=== PATIENT | female | born 1975 | race Asian ===

== ENCOUNTER 2018-10-03 16:41 | Inpatient (IN) | payer OTHER ==
[2018-10-03] MEDS ORDERED: Nalbuphine 20 MG/ML 1 ML Syringe IVPUSH PRN (17:18)
[2018-10-03] MEDS ORDERED: Ampicillin 2 GM in Sodium Chloride 0.9% 100 ML IV ONE (17:18)
[2018-10-03] MEDS ORDERED: Sodium Chloride 0.9% 10 ML Syringe FLUSH PRN (17:18)
[2018-10-03] MEDS ORDERED: Acetaminophen 325 MG Tab PO PRN (17:18)
[2018-10-03] MEDS ORDERED: Oxytocin/Lactated Ringers 10 UNIT/1,000 ML BAG IV SCH ×2 (17:30)
--- NOTE | 2018-10-03 18:12 | PCM.LDHP ---
L&D History of Present Illness - General Date of Service: 10/03/18 Admit Problem/Dx: Patient Status Order with Admit Dx/Problem 10/03/18 17:19 Patient Status [ADT] Routine Admission Diagnosis/Problem Admission Diagnosis/Problem 39 weeks gestation of Source of Information: Patient History Limitations: Reports: No Limitations - History of Present Illness Introduction:: Guillermo Choe is a 43-year-old female at 38 weeks 6 days by LMP consistent with 20 week ultrasound who presents with spontaneous rupture membranes. She reports that she had small amount of leaking fluid at around 1 PM in and had a larger gush at around 4 PM. She reports that the fluid was a cloudy color but denies any green tent to the color of the fluid. She reports that she was maria victoria about every 20 minutes apart at time of rupture of her membranes. She states that the contractions were very mild in nature. She reports good movement. Timing/Duration: Reports: sudden onset (With leaking of fluid that started at around 1 PM and a large gush at around 4 PM), intermittent (Contractions every 20 minutes) Location, : Reports: Pelvic Quality: Reports: Pressure Severity: Mild Improves with: Reports: None Worsens with: Reports: None Associated Symptoms: Reports: vaginal fluid, moderate amount. Denies: vaginal bleeding, vaginal discharge Present Illness Comments:: Guillermo Choe is a 43-year-old at 38 weeks 6 days by LMP consistent with 20 week ultrasound. She has had routine care with Dr. Hannon since 12 weeks gestational age. This has been overall uncomplicated. Patient was given TDaP on 07/28/2018. labs Blood type: A+ Antibody screen: Negative First trimester hematocrit/hemoglobin: 35.6%/11.8 Platelets: 314 Genetic screening: Patient declined genetic screening after offering due to advanced maternal age Urine culture: Negative Rubella status: Immune Hepatitis B surface antigen: Negative RPR: Negative HIV: Negative Gonorrhea: Negative Chlamydia: Negative One hour glucose tolerance test: 120 Second trimester hematocrit/hemoglobin: 10.9 Platelets: 355 GBS status: Positive complicated by: * History of section for breech presentation and oligohydramnios and desires trial of labor after section * GBS positive without allergies * [place] ancestry BOOKKEEPER ASSISTANT history G1: 2000, , female infant, 6 pounds, at 40 weeks, no complications G2: 03/2014, SAB G3: 09/2014, concern for possible ectopic , patient given methotrexate for ectopic , D&C done for concerns for incomplete miscarriage G4: 10/05/2015, delivery for breech presentation with oligohydramnios at 37 weeks, male infant, no other complications G5: Current History of abnormal Pap smear but Pap smear during last in 03/2015 was negative for intraepithelial lesion or malignancy negative HPV testing Denies history of sexual transmitted infections - Related Data Allergies/Adverse Reactions: Allergies Allergy/AdvReac Type Severity Reaction Status Date / Time venom-honey bee Allergy Anaphylactic Verified 10/05/15 11:51 [bee venom (honey bee)] Shock Past Medical History - Past Health History Medical/Surgical History: Denies Medical/Surgical History BOOKKEEPER ASSISTANT History: Reports: Ectopic , Other (See Below) : 5 Para: 2 (2021) Other OB/BYN History: D/C done for miscarriage Hematologic History: Reports: Anemia - Past Surgical History Female Surgical History: Reports: Breast Implant, Section (2015) Social & Family History - Family History Oncologic: Reports: Bone (Mother) - Tobacco Use Smoking Status *Q: Never Smoker - Tobacco Core Measures Tobacco Use/Smoking Within Last 30 Days: No Smokeless Tobacco Use in Last 30 Days: No - Alcohol Use Alcohol Use History: No - Recreational Drug Use Recreational Drug Use: No Drug Use in Last 12 Months: No - Living Situation & Occupation Living situation: Reports: , with Significant Other (Engaged to new partner) Occupation: Employed H&P Review of Systems - Review of Systems: Review Of Systems: See Below General: Denies: Fever, Chills, Malaise, Weakness, Fatigue HEENT: Denies: Rhinitis, Post Nasal Drip, Sinus Congestion, Sore Throat, Visual Changes Pulmonary: Denies: Shortness of Breath, Wheezing, Pleuritic Chest Pain, Cough Cardiovascular: Denies: Chest Pain, Palpitations, Dyspnea on Exertion Gastrointestinal: Denies: Abdominal Pain, Constipation, Diarrhea, Nausea, Vomiting Genitourinary: Denies: Dysuria, Frequency, Burning, Pain, Urgency Musculoskeletal: Reports: Back Pain (And hip pain of ) Skin: Denies: Rash, Lesions Psychiatric: Denies: Depression, Anxiety Neurological: Denies: Headache L&D Exam - Exam Exam: See Below - OB Specific Contraction Duration (sec): 60 Contraction Frequency (min): Irregular 4-10 minutes Contraction Intensity: Mild to Moderate Movement: Active Heart Tones: Present Heart Tones per Min: 130 (+15 x 15 accelerations, no decelerations) Heart Rate (FHR) Variability: Moderate (6-25 bmp) Presentation: Vertex (Confirmed by bedside ultrasound) Estimated Weight: 6.5-7 pounds by Neal - Aguiar Score Aguiar Score Cervix Position: Anterior Aguiar Score Consistency: Medium Aguiar Score Effacement: 51-70% (60%) Aguiar Score Dilation: 1-2 cm (1 cm) Aguiar Score 's Station: -3 Aguiar Score Total: 6 - Exam General: Alert, Oriented HEENT: Conjunctiva Clear, EOMI Neck: Supple, Trachea Midline Lungs: Clear to Auscultation, Normal Respiratory Effort Cardiovascular: Regular Rate, Regular Rhythm GI/Abdominal Exam: Soft, No Distention, Other (Gravid). No: Guarding, Rigid, Rebound Genitourinary: Normal external exam Extremities: Normal Inspection, No Pedal Edema Skin: Warm, Dry, Intact Psychiatric: Alert, Normal Affect, Normal Mood - Problem List (1) 38 weeks gestation of SNOMED Code(s): 92569344 ICD Code: Z3A.38 - 38 WEEKS GESTATION OF Status: Acute Current Visit: Yes (2) History of section SNOMED Code(s): 457222576 ICD Code: Z98.891 - HISTORY OF UTERINE SCAR FROM PREVIOUS SURGERY Status: Acute Current Visit: Yes (3) History of delivery, currently SNOMED Code(s): 710326968, 362056309 ICD Code: O34.219 - MATERNAL CARE FOR UNSP TYPE SCAR FROM PREVIOUS DEL Status: Acute Current Visit: Yes (4) GBS (group B Streptococcus carrier), +RV culture, currently SNOMED Code(s): 8165481731735, 027363386, 1217956327550 ICD Code: O99.820 - STREPTOCOCCUS B CARRIER STATE COMPLICATING Status: Acute Current Visit: Yes (5) Advanced maternal age in multigravida SNOMED Code(s): 406127945 ICD Code: O09.529 - SUPERVISION OF ELDERLY MULTIGRAVIDA, UNSPECIFIED TRIMESTER Status: Acute Current Visit: Yes (6) ancestry requiring population-specific genetic screening SNOMED Code(s): 53364153, 514556850, 548193878 ICD Code: Z13.9 - ENCOUNTER FOR SCREENING, UNSPECIFIED Status: Acute Current Visit: Yes Problem List Initiated/Reviewed/Updated: Yes Orders Last 24hrs: Active Orders 24 hr Category Date Time Status Patient Status [ADT] Routine ADT 10/03/18 17:19 Active Activity as Tolerated [RC] PFP Care 10/03/18 17:18 Active Communication Order [RC] ASDIRECTED Care 10/03/18 17:18 Active Heart Tones [RC] ASDIRECTED Care 10/03/18 17:19 Active Non Stress Test [RC] PER UNIT ROUTINE Care 10/03/18 17:18 Active Notify Provider Vital Signs [RC] PRN Care 10/03/18 17:20 Active Notify Provider [RC] PFP Care 10/03/18 17:18 Active Notify Provider [RC] PRN Care 10/03/18 17:18 Active Peripheral IV Care [RC] . DIRECTED Care 10/03/18 17:19 Active Pump Management, Intrathecal [RC] ASDIRECTED Care 10/03/18 17:19 Active Vital Signs [RC] PER UNIT ROUTINE Care 10/03/18 17:18 Active Regular Diet [DIET] Diet 10/03/18 Dinner Active CBC WITH AUTO DIFF [HEME] Routine Lab 10/03/18 17:30 Received RAPID PLASMA REAGIN,RPR [CHEM] Routine Lab 10/03/18 17:30 Received TYPE AND SCREEN [BBK] Routine Lab 10/03/18 17:30 Received Acetaminophen [Tylenol] Med 10/03/18 17:18 Active 650 mg PO Q6H PRN Ampicillin 1 gm Med 10/03/18 21:00 Active Sodium Chloride 0.9% [Normal Saline] 100 ml IV Q4H Lactated Ringers [Ringers, Lactated] 1,000 ml Med 10/03/18 17:30 Active IV ASDIRECTED Nalbuphine [Nubain] Med 10/03/18 17:18 Active 10 mg IVPUSH Q2H PRN Oxytocin/Lactated Ringers [Pitocin in LR 10 Units/1,000 Med 10/03/18 17:30 Active ML] 10 unit in 1,000 ml IV .CONTINUOUS Oxytocin/Lactated Ringers [Pitocin in LR 10 Units/1,000 Med 10/03/18 17:30 Active ML] 10 unit in 1,000 ml IV TITRATE Sodium Chloride 0.9% [Saline Flush] Med 10/03/18 17:18 Active 10 ml FLUSH ASDIRECTED PRN Electronic Heart Tones Ext w TOCO [WOMSER] Oth 10/03/18 17:18 Ordered Routine Electronic Heart Tones Internal [WOMSER] Per Unit Ot 10/03/18 17:18 Ordered Routine Peripheral IV Insertion Adult [OM.PC] Routine Oth 10/03/18 17:18 Ordered Resuscitation Status Routine Resus Stat 10/03/18 17:18 Ordered Medication Orders Acetaminophen (Tylenol) 650 mg PO Q6H PRN PRN Reason: Pain (Mild 1-3) and fever Ampicillin Sodium 1 gm/ Sodium (Chloride) 100 mls @ 200 mls/hr IV Q4H KARLENE Lactated Ringer's (Ringers, Lactated) 1,000 mls @ 100 mls/hr IV ASDIRECTED KARLENE Oxytocin/Lactated Ringer's (Pitocin In Lr 10 Units/1,000 Ml) 10 unit in 1,000 mls @ 12 mls/hr IV TITRATE KARLENE; Protocol Oxytocin/Lactated Ringer's (Pitocin In Lr 10 Units/1,000 Ml) 10 unit in 1,000 mls @ 100 mls/hr IV .CONTINUOUS KARLENE; Protocol Nalbuphine HCl (Nubain) 10 mg IVPUSH Q2H PRN PRN Reason: pain Sodium Chloride (Saline Flush) 10 ml FLUSH ASDIRECTED PRN PRN Reason: Keep Vein Open Assessment/Plan Comment:: Refer to observation for spontaneous rupture of membranes Start Pitocin for augmentation of labor due to irregular contractions with several hours since rupture membranes Continuous monitoring Place IV and have Lactated Ringer's at 125 ml/hr May have small amounts of regular diet Activity as tolerated May have epidural as desired Plans to breast-feed after delivery Start on ampicillin 2 g now and have 1 g every 4 hours after for GBS prophylaxis Reviewed the risks and benefits of trial of labor after section versus repeat section and patient desires to proceed with trial of labor after section. Consents were signed. CBC, RPR and type and screen Anticipate vaginal delivery unless otherwise indicated Lamin Stephenson M.D. 6:23 PM 10/03/2018
[2018-10-03] MEDS: Lactated Ringers 1,000 ML IV SCH ×2 (18:24→23:54)
[2018-10-03] MEDS ORDERED: Ampicillin 1 GM in Sodium Chloride 0.9% 100 ML IV SCH (21:00)
--- NOTE | 2018-10-03 21:14 | PCM.PNLD ---
Labor Progress Note - VS & Meds Vital Signs: Last Vital Signs Temp 36.8 C 10/03/18 17:18 Pulse 74 10/03/18 17:18 Resp 15 10/03/18 17:18 BP 124/67 10/03/18 17:18 Pulse Ox Active Medications: Current Medications Acetaminophen (Tylenol) 650 mg PO Q6H PRN PRN Reason: Pain (Mild 1-3) and fever Ampicillin Sodium 1 gm/ Sodium (Chloride) 100 mls @ 200 mls/hr IV Q4H KARLENE Lactated Ringer's (Ringers, Lactated) 1,000 mls @ 100 mls/hr IV ASDIRECTED KARLENE Last Admin: 10/03/18 18:24 Dose: 100 mls/hr Oxytocin/Lactated Ringer's (Pitocin In Lr 10 Units/1,000 Ml) 10 unit in 1,000 mls @ 12 mls/hr IV TITRATE KARLENE; Protocol Last Titration: 10/03/18 19:33 Dose: 3 munits/min, 18 mls/hr Oxytocin/Lactated Ringer's (Pitocin In Lr 10 Units/1,000 Ml) 10 unit in 1,000 mls @ 100 mls/hr IV .CONTINUOUS KARLENE; Protocol Nalbuphine HCl (Nubain) 10 mg IVPUSH Q2H PRN PRN Reason: pain Sodium Chloride (Saline Flush) 10 ml FLUSH ASDIRECTED PRN PRN Reason: Keep Vein Open Discontinued Medications Ampicillin Sodium 2 gm/ Sodium (Chloride) 100 mls @ 200 mls/hr IV ONETIME ONE Stop: 10/03/18 17:47 Last Admin: 10/03/18 18:24 Dose: 200 mls/hr - Uterine Contractions Uterine Monitoring Mode: External Estill Contraction Frequency (min): 2-6 Contraction Duration (sec): 60 Contraction Intensity: Moderate to Strong Uterine Resting Tone: Soft - Monitoring Monitor Mode: Doppler/Auscultation Heart Rate (FHR) Baseline: 135 Heart Rate (FHR) Per Doppler: 135 Heart Rate (FHR) Variability: Moderate (6-25 bmp) Accelerations: Present, 15x15 Decelerations: None Strip Review: Category I - Vaginal Exam Dilation (cm): 1.5 Effacement (Percent): 80% Station: -3 Cervical Position: Posterior Sterile Vaginal Exam Performed By: Lamin Stephenson - Labor Progress (Free Text) Labor Progress: Patient with minimal progress from initial presentation. Patient started on Pitocin and having irregular contraction pattern every 2-6 minutes. Continue with Pitocin for augmentation of labor. Continue to monitor vitals. Epidural when necessary per patient request Continuous monitoring of infant Anticipate vaginal delivery unless otherwise indicated. Lamin Stephenson M.D. 9:13 PM 10/03/2018
[2018-10-03] MEDS ORDERED: Bupivacaine 0.25% 10 ML SDV ONE (22:00)
[2018-10-03] MEDS: Ampicillin 1 GM in Sodium Chloride 0.9% 100 ML IV SCH (22:17)
[2018-10-03] MEDS ORDERED: Bupivacaine/fentaNYL/NS 100 ML Bag EPIDUR SCH (23:45)
[2018-10-03] MEDS ORDERED: fentaNYL 100 MCG/2 ML SDV EPIDUR PRN (23:50)
[2018-10-03] MEDS ORDERED: ePHEDrine 50 MG/ML SDV IVPUSH PRN (23:50)
[2018-10-03] MEDS ORDERED: diphenhydrAMINE 50 MG/ML SDV IVPUSH PRN (23:50)
[2018-10-03] MEDS ORDERED: Ondansetron 4 MG/2 ML SDV IVPUSH PRN (23:50)
[2018-10-04] MEDS ORDERED: fentaNYL/Bupivacaine-NS 2 MCG/ML-0.125%/PF 100 ML Bag EP SCH (00:21)
--- NOTE | 2018-10-04 00:26 | PCM.PREANE ---
Preanesthetic Assessment - Anesthesia/Transfusion/Family Hx Anesthesia History: Prior Anesthesia Without Reaction Family History of Anesthesia Reaction: No Transfusion History: No Prior Transfusion(s) - Review of Systems General: No Symptoms Pulmonary: No Symptoms Cardiovascular: No Symptoms Gastrointestinal: No Symptoms Neurological: Headache (migraines) Other: Reports: None - Physical Assessment O2 Sat by Pulse Oximetry: 98 Respiratory Rate: 15 Vital Signs: Last Vital Signs Temp 36.8 C 10/03/18 17:18 Pulse 74 10/03/18 17:18 Resp 15 10/03/18 17:18 BP 124/67 10/03/18 17:18 Pulse Ox Height: 1.57 m Weight: 65.317 kg ASA Class: 2 Mental Status: Alert & Oriented x3 Dentition: Reports: Normal Dentition Thyro-Mental Finger Breadths: 3 Mouth Opening Finger Breadths: 3 ROM/Head Extension: Full Lungs: Clear to Auscultation, Normal Respiratory Effort Cardiovascular: Regular Rate, Regular Rhythm - Lab Values: Laboratory Last Values WBC 8.53 K/mm3 (3.98-10.04) 10/03/18 17:30 RBC 4.28 M/mm3 (3.98-5.22) 10/03/18 17:30 Hgb 12.2 gm/L (11.2-15.7) 10/03/18 17:30 Hct 37.7 % (34.1-44.9) 10/03/18 17:30 MCV 88.1 fl (79.4-94.8) 10/03/18 17:30 MCH 28.5 pg (25.6-32.2) 10/03/18 17:30 MCHC 32.4 g/dl (32.2-35.5) 10/03/18 17:30 RDW Std Deviation 46.4 fL (36.4-46.3) H 10/03/18 17:30 Plt Count 285 K/mm3 (182-369) 10/03/18 17:30 MPV 11.0 fl (9.4-12.3) 10/03/18 17:30 Neut % (Auto) 65.0 % (34.0-71.1) 10/03/18 17:30 Lymph % (Auto) 23.1 % (19.3-51.7) 10/03/18 17:30 [place] % (Auto) 8.9 % (4.7-12.5) 10/03/18 17:30 Eos % (Auto) 2.5 (0.7-5.8) 10/03/18 17:30 Baso % (Auto) 0.1 % (0.1-1.2) 10/03/18 17:30 Neut # (Auto) 5.55 K/mm3 (1.56-6.13) 10/03/18 17:30 Lymph # (Auto) 1.97 K/mm3 (1.18-3.74) 10/03/18 17:30 [place] # (Auto) 0.76 K/mm3 (0.24-0.36) H 10/03/18 17:30 Eos # (Auto) 0.21 K/mm3 (0.04-0.36) 10/03/18 17:30 Baso # (Auto) 0.01 K/mm3 (0.01-0.08) 10/03/18 17:30 Blood Type A POSITIVE 10/03/18: Gel Antibody Screen Negative 10/03/18 17:30 - Allergies Allergies/Adverse Reactions: Allergies Allergy/AdvReac Type Severity Reaction Status Date / Time venom-honey bee Allergy Anaphylactic Verified 10/05/15 11:51 [bee venom (honey bee)] Shock - Acknowledgements Anesthesia Type Planned: Epidural Pt an Appropriate Candidate for the Planned Anesthesia: Yes Alternatives and Risks of Anesthesia Discussed w Pt/Guardian: Yes Pt/Guardian Understands and Agrees with Anesthesia Plan: Yes PreAnesthesia Questionnaire - Past Health History Medical/Surgical History: Denies Medical/Surgical History 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 , Other (See Below) Other OB/BYN History: D/C done for miscarriage Hematologic History: Reports: Anemia - Past Surgical History Female Surgical History: Reports: Breast Implant, Section (2016) - SUBSTANCE USE Smoking Status *Q: Never Smoker Second Hand Smoke Exposure: No Recreational Drug Use History: No - CURRENT (IN HOUSE) MEDS Current Meds: Current Medications Acetaminophen (Tylenol) 650 mg PO Q6H PRN PRN Reason: Pain (Mild 1-3) and fever Diphenhydramine HCl (Benadryl) 25 mg IVPUSH Q6H PRN PRN Reason: Pruritis Ephedrine Sulfate (Ephedrine Sulfate) 5 mg IVPUSH ASDIRECTED PRN PRN Reason: Hypotension Fentanyl (Sublimaze) 100 mcg EPIDUR ONETIME PRN PRN Reason: Pain Fentanyl/Bupivacaine HCl (Njqpavev-Dojet-Lt 2 Mcg/Ml-0.125%) 100 ml EP ASDIRECTED KARLENE Lactated Ringer's (Ringers, Lactated) 1,000 mls @ 100 mls/hr IV ASDIRECTED KARLENE Last Admin: 10/03/18 23:54 Dose: 100 mls/hr Oxytocin/Lactated Ringer's (Pitocin In Lr 10 Units/1,000 Ml) 10 unit in 1,000 mls @ 12 mls/hr IV TITRATE KARLENE; Protocol Last Titration: 10/03/18 22:15 Dose: 4 munits/min, 24 mls/hr Oxytocin/Lactated Ringer's (Pitocin In Lr 10 Units/1,000 Ml) 10 unit in 1,000 mls @ 100 mls/hr IV .CONTINUOUS KARLENE; Protocol Ampicillin Sodium 1 gm/ Sodium (Chloride) 100 mls @ 200 mls/hr IV Q4H [facility] Last Admin: 10/03/18 22:17 Dose: 200 mls/hr Nalbuphine HCl (Nubain) 10 mg IVPUSH Q2H PRN PRN Reason: pain Ondansetron HCl (Zofran) 4 mg IVPUSH ONETIME PRN PRN Reason: Nausea/Vomiting Sodium Chloride (Saline Flush) 10 ml FLUSH ASDIRECTED PRN PRN Reason: Keep Vein Open Discontinued Medications Fentanyl/Bupivacaine HCl (Fentanyl/Bupivacaine/Ns 2 Mcg-0.125% 100 Ml) 100 ml EPIDUR ASDIRECTED [facility] Ampicillin Sodium 2 gm/ Sodium (Chloride) 100 mls @ 200 mls/hr IV ONETIME ONE Stop: 10/03/18 17:47 Last Admin: 10/03/18 18:24 Dose: 200 mls/hr Ampicillin Sodium 1 gm/ Sodium (Chloride) 100 mls @ 200 mls/hr IV Q4H [facility] Last Admin: 10/03/18 21:46 Dose: Not Given
[2018-10-04] MEDS: Lactated Ringers 1,000 ML IV SCH (00:51)
[2018-10-04] MEDS: Ampicillin 1 GM in Sodium Chloride 0.9% 100 ML IV SCH (01:43)
--- NOTE | 2018-10-04 05:28 | PCM.DEL ---
L & D Note - General Info Date of Service: 10/04/18 Mother's Due Date: 10/11/18 - Delivery Note Labor: Spontaneous, Augmented by Oxytocin Cervical Ripening Method: Oxytocin Delivery Outcome: Livebirth Delivery Method: Spontaneous Vaginal Delivery-Single Presentation: Left Occiput Anterior (ABIMAEL) (Confirmed by bedside ultrasound ) Nuchal Cord: None Prep: Povidone-Iodine (Betadine Anesthesia Type: Epidural Episiotomy Type: None Laceration: 2nd Degree, Perineal (midline, repaired with 3-0 Vicryl) Suture type: Vicryl Suture size: 3-0 Placenta: Intact, Spontaneous Cord: 3 Vessels Estimated Blood Loss: 250 Resuscitation Needed: Yes [place]: Suctioned, Bulb Syringe, Stimulated, Warmed, [place] Used, Warmer Used Provider: Lamin Stephesnon Score 1 min: 8 Score 5 min: 9 Second Stage Interventions: Reports: Pushing Effectively, Pushing, Stirrups/Leg Supports Delivery Comments (Free Text/Narrative):: Stage I: Guillermo Choe was admitted for spontaneous rupture membranes with clear fluid. On admission her cervix was dilated to 1 cm. She was GBS positive and was started on ampicillin. She received a total of 2 doses prior to delivery. She was started on Pitocin for augmentation of labor with irregular contractions after rupture membranes. She was given an epidural for anesthesia. She progressed to complete and pushing. Stage II: On 10/04/2018 she had a normal vaginal delivery after section of a live female at 0459. Apgars of 8 & 9. Weight of 3240 g (7 lbs 2.3 oz ). Length of 21 inches. There was no nuchal cord. was delivered in ABIMAEL position. The cord was doubly clamped and cut by father of the . was placed on mother's abdomen and then taken to warmer for further resuscitation. During pushing she had decelerations into the 80s to 90s and was given oxygen via simple mask. Stage III: She had a spontaneous delivery of an intact placenta in Pauline presentation. Three vessel cord. She was given pitocin and fundal massage. She had a second-degree midline perineal laceration that was repaired with 3-0 Vicryl. Mom and baby were stable to recovery. EBL of 250 mL. Lamin Stephenson MD 5:30 AM 10/04/2018 - General Info Date of Service: 10/04/18 - Patient Data Vitals - Most Recent: Last Vital Signs Temp 36.8 C 10/03/18 17:18 Pulse 74 10/03/18 17:18 Resp 15 10/04/18 00:26 BP 124/67 10/03/18 17:18 Pulse Ox 98 10/04/18 00:26 Weight - Most Recent: 65.317 kg Lab Results Last 24 Hours: Laboratory Results - last 24 hr 10/03/18 10/03/18 Range/Units 17:30 17:30 WBC 8.53 (3.98-10.04) K/mm3 RBC 4.28 (3.98-5.22) M/mm3 Hgb 12.2 (11.2-15.7) gm/L Hct 37.7 (34.1-44.9) % MCV 88.1 (79.4-94.8) fl MCH 28.5 (25.6-32.2) pg MCHC 32.4 (32.2-35.5) g/dl RDW Std Deviation 46.4 H (36.4-46.3) fL Plt Count 285 (182-369) K/mm3 MPV 11.0 (9.4-12.3) fl Neut % (Auto) 65.0 (34.0-71.1) % Lymph % (Auto) 23.1 (19.3-51.7) % [place] % (Auto) 8.9 (4.7-12.5) % Eos % (Auto) 2.5 (0.7-5.8) Baso % (Auto) 0.1 (0.1-1.2) % Neut # (Auto) 5.55 (1.56-6.13) K/mm3 Lymph # (Auto) 1.97 (1.18-3.74) K/mm3 [place] # (Auto) 0.76 H (0.24-0.36) K/mm3 Eos # (Auto) 0.21 (0.04-0.36) K/mm3 Baso # (Auto) 0.01 (0.01-0.08) K/mm3 Blood Type A POSITIVE Gel Antibody Screen Negative Med Orders - Current: Current Medications Acetaminophen (Tylenol) 650 mg PO Q6H PRN PRN Reason: Pain (Mild 1-3) and fever Diphenhydramine HCl (Benadryl) 25 mg IVPUSH Q6H PRN PRN Reason: Pruritis Last Admin: 10/04/18 01:39 Dose: 25 mg Ephedrine Sulfate (Ephedrine Sulfate) 5 mg IVPUSH ASDIRECTED PRN PRN Reason: Hypotension Fentanyl (Sublimaze) 100 mcg EPIDUR ONETIME PRN PRN Reason: Pain Last Admin: 10/04/18 00:27 Dose: 100 mcg Fentanyl/Bupivacaine HCl (Fqnsvvzq-Dxvlb-Aa 2 Mcg/Ml-0.125%) 100 ml EP ASDIRECTED KARLENE Last Admin: 10/04/18 00:27 Dose: 100 ml Lactated Ringer's (Ringers, Lactated) 1,000 mls @ 100 mls/hr IV ASDIRECTED KARLENE Last Admin: 10/04/18 00:51 Dose: 100 mls/hr Oxytocin/Lactated Ringer's (Pitocin In Lr 10 Units/1,000 Ml) 10 unit in 1,000 mls @ 12 mls/hr IV TITRATE KARLENE; Protocol Last Titration: 10/04/18 01:00 Dose: 5 munits/min, 30 mls/hr Oxytocin/Lactated Ringer's (Pitocin In Lr 10 Units/1,000 Ml) 10 unit in 1,000 mls @ 100 mls/hr IV .CONTINUOUS KARLENE; Protocol Ampicillin Sodium 1 gm/ Sodium (Chloride) 100 mls @ 200 mls/hr IV Q4H KARLENE Last Admin: 10/04/18 01:43 Dose: 200 mls/hr Nalbuphine HCl (Nubain) 10 mg IVPUSH Q2H PRN PRN Reason: pain Ondansetron HCl (Zofran) 4 mg IVPUSH ONETIME PRN PRN Reason: Nausea/Vomiting Sodium Chloride (Saline Flush) 10 ml FLUSH ASDIRECTED PRN PRN Reason: Keep Vein Open Discontinued Medications Fentanyl/Bupivacaine HCl (Fentanyl/Bupivacaine/Ns 2 Mcg-0.125% 100 Ml) 100 ml EPIDUR ASDIRECTED KARLENE Ampicillin Sodium 2 gm/ Sodium (Chloride) 100 mls @ 200 mls/hr IV ONETIME ONE Stop: 10/03/18 17:47 Last Admin: 10/03/18 18:24 Dose: 200 mls/hr Ampicillin Sodium 1 gm/ Sodium (Chloride) 100 mls @ 200 mls/hr IV Q4H KARLENE Last Admin: 10/03/18 21:46 Dose: Not Given - Problem List & Annotations (1) 38 weeks gestation of SNOMED Code(s): 95522484 Code(s): Z3A.38 - 38 WEEKS GESTATION OF Status: Acute Current Visit: Yes (2) History of section SNOMED Code(s): 853187836 Code(s): Z98.891 - HISTORY OF UTERINE SCAR FROM PREVIOUS SURGERY Status: Acute Current Visit: Yes (3) History of delivery, currently SNOMED Code(s): 605836751, 756152705 Code(s): O34.219 - MATERNAL CARE FOR UNSP TYPE SCAR FROM PREVIOUS DEL Status: Acute Current Visit: Yes (4) GBS (group B Streptococcus carrier), +RV culture, currently SNOMED Code(s): 5803320205387, 984592928, 0512828055784 Code(s): O99.820 - STREPTOCOCCUS B CARRIER STATE COMPLICATING Status: Acute Current Visit: Yes (5) Advanced maternal age in multigravida SNOMED Code(s): 713799959 Code(s): O09.529 - SUPERVISION OF ELDERLY MULTIGRAVIDA, UNSPECIFIED TRIMESTER Status: Acute Current Visit: Yes (6) ancestry requiring population-specific genetic screening SNOMED Code(s): 25523248, 181574281, 171806631 Code(s): Z13.9 - ENCOUNTER FOR SCREENING, UNSPECIFIED Status: Acute Current Visit: Yes (7) Vaginal delivery SNOMED Code(s): 828587129 Code(s): O80 - ENCOUNTER FOR FULL-TERM UNCOMPLICATED DELIVERY Status: Acute Current Visit: Yes (8) Vaginal delivery following previous section, delivered SNOMED Code(s): 913540194 Code(s): O34.219 - MATERNAL CARE FOR UNSP TYPE SCAR FROM PREVIOUS DEL Status: Acute Current Visit: Yes (9) Second degree perineal laceration during delivery SNOMED Code(s): 6055202 Code(s): O70.1 - SECOND DEGREE PERINEAL LACERATION DURING DELIVERY Status: Acute Current Visit: Yes - Problem List Review Problem List Initiated/Reviewed/Updated: Yes - My Orders Last 24 Hours: My Active Orders 03/17/19 17:18 Activity as Tolerated [RC] PFP Communication Order [RC] ASDIRECTED Notify Provider [RC] PFP Notify Provider [RC] PRN Vital Signs [RC] 21,03,09,15 Acetaminophen [Tylenol] 650 mg PO Q6H PRN Nalbuphine [Nubain] 10 mg IVPUSH Q2H PRN Sodium Chloride 0.9% [Saline Flush] 10 ml FLUSH ASDIRECTED PRN Electronic Heart Tones Ext w TOCO [WOMSER] Routine Electronic Heart Tones Internal [WOMSER] Per Unit Routine Peripheral IV Insertion Adult [OM.PC] Routine Resuscitation Status Routine 10/03/18 17:19 Patient Status [ADT] Routine Heart Tones [RC] ASDIRECTED Pump Management, Intrathecal [RC] ASDIRECTED 10/03/18 17:20 Notify Provider Vital Signs [RC] PRN 10/03/18 17:30 RAPID PLASMA REAGIN,RPR [CHEM] Routine Lactated Ringers [Ringers, Lactated] 1,000 ml IV ASDIRECTED Oxytocin/Lactated Ringers [Pitocin in LR 10 Units/1,000 ML] 10 unit in 1,000 ml IV .CONTINUOUS Oxytocin/Lactated Ringers [Pitocin in LR 10 Units/1,000 ML] 10 unit in 1,000 ml IV TITRATE 10/03/18 22:00 Ampicillin 1 gm Sodium Chloride 0.9% [Normal Saline] 100 ml IV Q4H 10/03/18 Dinner Regular Diet [DIET] 10/04/18 05:20 Patient Status Manage Transfer [TRANSFER] Routine - Plan Plan:: Admit to inpatient following normal spontaneous vaginal delivery after section Continue Pitocin per unit protocol following delivery of placenta and lactated Ringer's until tolerating regular diet Regular diet Vitals per unit routine Ibuprofen and Tylenol for pain control Assist with breast-feeding as needed Continue to monitor lochia Anticipate discharge home on day #1 or #2 Lamin Stephenson MD 5:30 AM 10/04/2018
[2018-10-04] MEDS ORDERED: Hydrocortisone Acetate 25 MG Supp RECTAL PRN (05:53)
[2018-10-04] MEDS ORDERED: Oxytocin/Lactated Ringers 10 UNIT/1,000 ML BAG IV SCH (05:53)
[2018-10-04] MEDS ORDERED: Witch Hazel Medicated Pads 40/Jar TOP PRN (05:53)
[2018-10-04] MEDS ORDERED: Lanolin 100% Cream 7 GM Tube TOP PRN (05:53)
[2018-10-04] MEDS ORDERED: Benzocaine/Menthol 20%-0.5% Spray 56 GM Canister TOP PRN (05:53)
[2018-10-04] MEDS ORDERED: Docusate Sodium 100 MG Cap PO PRN (05:53)
[2018-10-04] MEDS: Ibuprofen 600 MG Tab PO PRN ×3 (07:36→19:41)
[2018-10-04] MEDS: Prenatal Multivitamin with Calcium/Folic Acid/Iron Tab PO SCH (09:30)
[2018-10-04] MEDS: Acetaminophen 325 MG Tab PO PRN (15:56)
[2018-10-05] MEDS: Acetaminophen 325 MG Tab PO PRN (00:35)
[2018-10-05] MEDS: Ibuprofen 600 MG Tab PO PRN ×2 (06:32→12:28)
--- NOTE | 2018-10-05 07:35 | PCM48HPAN ---
Post Anesthesia Note - EVALUATION WITHIN 48HRS OF ANESTHETIC Vital Signs in Normal Range: Yes Patient Participated in Evaluation: Yes Respiratory Function Stable: Yes Airway Patent: Yes Cardiovascular Function Stable: Yes Hydration Status Stable: Yes Pain Control Satisfactory: Yes Nausea and Vomiting Control Satisfactory: Yes Mental Status Recovered: Yes (sitting at edge of bed nursing) Pulse Rate: 96 Resp Rate: 16 Temperature: 97.9 F Blood Pressure: 109/89
[2018-10-05] MEDS: Prenatal Multivitamin with Calcium/Folic Acid/Iron Tab PO SCH (08:54)
[2018-10-05 09:03] VITALS: BP 116/75
--- NOTE | 2018-10-05 13:42 | PCM.SN ---
- Free Text/Narrative Note: Post Progress Note (late entry note from evaluation at 1 PM) PPD # 1 Subjective: Doing well overall. Ambulating without difficulty. Lochia minimal. Voiding without difficulty. Tolerating regular diet without nausea or vomiting. Pain controlled with oral medications. Breast-feeding with minimal difficulty. Objective: Vitals: Vital Signs - 24 hr 10/04/18 10/05/18 10/05/18 19:37 02:18 07:34 Temperature 36.6 C 36.6 C 36.6 C Pulse, 82 96 96 Peripheral Respiratory 16 16 16 Rate Blood Pressure 122/46 L 109/89 109/89 O2 Sat by Pulse 98 98 Oximetry 10/05/18 07:58 Temperature 36.3 C Pulse, 72 Peripheral Respiratory 16 Rate Blood Pressure 116/75 O2 Sat by Pulse 99 Oximetry Physical Exam General: Alert and oriented, no acute distress Lungs: Clear to auscultation bilaterally Heart: Regular rate and rhythm Abdomen: Soft, minimal appropriate tenderness, non-distended, fundus midline, nontender, and 2 finger breadth below the umbilicus Extremities: 1+ edema in bilateral feet to ankles ASSESSMENT: 43-year-old female 0-3 s/p normal vaginal delivery after section PPD #1, complicated by history section for breech presentation, GBS positive status and received 2 doses of ampicillin prior to delivery, advanced maternal age and [place] ancestry PLAN: Doing well Breast-feeding with minimal difficulty. Assist as needed Lochia minimal. Continue to monitor for appropriate lochia. Continue routine care Anticipate discharge home today Lamin Stephenson MD 6:09 PM 10/05/2018
--- NOTE | 2018-10-05 18:20 | PCM.DCSUM1 ---
Discharge Summary - Hospital Course Free Text/Narrative:: - General Info Date of Service: 10/04/18 Mother's Due Date: 10/11/18 - Delivery Note Labor: Spontaneous, Augmented by Oxytocin Cervical Ripening Method: Oxytocin Delivery Outcome: Livebirth Infant Delivery Method: Spontaneous Vaginal Delivery-Single Presentation: Left Occiput Anterior (ABIMAEL) (Confirmed by bedside ultrasound ) Nuchal Cord: None Prep: Povidone-Iodine (Betadine Anesthesia Type: Epidural Episiotomy Type: None Laceration: 2nd Degree, Perineal (midline, repaired with 3-0 Vicryl) Suture type: Vicryl Suture size: 3-0 Placenta: Intact, Spontaneous Cord: 3 Vessels Estimated Blood Loss: 250 Resuscitation Needed: Yes : Suctioned, Bulb Syringe, Stimulated, Warmed, [place] Used, Warmer Used Provider: Lamin Stephenson Score 1 min: 8 Score 5 min: 9 Second Stage Interventions: Reports: Pushing Effectively, Pushing, Stirrups/Leg Supports Delivery Comments (Free Text/Narrative):: Stage I: Guillermo Choe was admitted for spontaneous rupture membranes with clear fluid. On admission her cervix was dilated to 1 cm. She was GBS positive and was started on ampicillin. She received a total of 2 doses prior to delivery. She was started on Pitocin for augmentation of labor with irregular contractions after rupture membranes. She was given an epidural for anesthesia. She progressed to complete and pushing. Stage II: On 10/04/2018 she had a normal vaginal delivery after section of a live female at 0459. Apgars of 8 & 9. Weight of 3240 g (7 lbs 2.3 oz ). Length of 21 inches. There was no nuchal cord. was delivered in ABIMAEL position. The cord was doubly clamped and cut by father of the infant. Infant was placed on mother's abdomen and then taken to warmer for further resuscitation. During pushing she had decelerations into the 80s to 90s and was given oxygen via simple mask. Stage III: She had a spontaneous delivery of an intact placenta in [place] presentation. Three vessel cord. She was given pitocin and fundal massage. She had a second-degree midline perineal laceration that was repaired with 3-0 Vicryl. Mom and baby were stable to recovery. EBL of 250 mL. HPI Initial Comments: - General Info Date of Service: 10/04/18 Mother's Due Date: 10/11/18 - Delivery Note Labor: Spontaneous, Augmented by Oxytocin Cervical Ripening Method: Oxytocin Delivery Outcome: Livebirth Infant Delivery Method: Spontaneous Vaginal Delivery-Single Presentation: Left Occiput Anterior (ABIMAEL) (Confirmed by bedside ultrasound ) Nuchal Cord: None Prep: Povidone-Iodine (Betadine Anesthesia Type: Epidural Episiotomy Type: None Laceration: 2nd Degree, Perineal (midline, repaired with 3-0 Vicryl) Suture type: Vicryl Suture size: 3-0 Placenta: Intact, Spontaneous Cord: 3 Vessels Estimated Blood Loss: 250 Resuscitation Needed: Yes [place]: Suctioned, Bulb Syringe, Stimulated, Warmed, [place] Used, Warmer Used Provider: Lamin Stephenson Score 1 min: 8 Score 5 min: 9 Second Stage Interventions: Reports: Pushing Effectively, Pushing, Stirrups/Leg Supports Delivery Comments (Free Text/Narrative):: Stage I: Guillermo Choe was admitted for spontaneous rupture membranes with clear fluid. On admission her cervix was dilated to 1 cm. She was GBS positive and was started on ampicillin. She received a total of 2 doses prior to delivery. She was started on Pitocin for augmentation of labor with irregular contractions after rupture membranes. She was given an epidural for anesthesia. She progressed to complete and pushing. Stage II: On 10/04/2018 she had a normal vaginal delivery after section of a live female infant at 0459. Apgars of 8 & 9. Weight of 3240 g (7 lbs 2.3 oz ). Length of 21 inches. There was no nuchal cord. was delivered in ABIMAEL position. The cord was doubly clamped and cut by father of the . Infant was placed on mother's abdomen and then taken to warmer for further resuscitation. During pushing she had decelerations into the 80s to 90s and was given oxygen via simple mask. Stage III: She had a spontaneous delivery of an intact placenta in [place] presentation. Three vessel cord. She was given pitocin and fundal massage. She had a second-degree midline perineal laceration that was repaired with 3-0 Vicryl. Mom and baby were stable to recovery. EBL of 250 mL. Brief History: - General Info. Date of Service: 10/04/18. Mother's Due Date: 10/11/18. - Delivery Note. Labor: Spontaneous, Augmented by Oxytocin. Cervical Ripening Method: Oxytocin. Delivery Outcome: Livebirth. Infant Delivery Method: Spontaneous Vaginal Delivery-Single. Presentation: Left Occiput Anterior (ABIMAEL) (Confirmed by bedside ultrasound). Nuchal Cord: None. Prep: Povidone-Iodine (Betadine. Anesthesia Type: Epidural. Episiotomy Type: None. Laceration: 2nd Degree, Perineal (midline, repaired with 3-0 Vicryl). Suture type: Vicryl. Suture size: 3-0. Placenta: Intact, Spontaneous. Cord: 3 Vessels. Estimated Blood Loss: 250. Resuscitation Needed: Yes. [place]: Suctioned, Bulb Syringe, Stimulated, Warmed, [place] Used, Warmer Used. Provider: Lamin Stephenson. Score 1 min: 8. Score 5 min: 9. Second Stage Interventions: Reports: Pushing Effectively, Pushing, Stirrups/ Leg Supports. Delivery Comments (Free Text/Narrative):: Stage I: Guillermo Choe was admitted for spontaneous rupture membranes with clear fluid. On admission her cervix was dilated to 1 cm. She was GBS positive and was started on ampicillin. She received a total of 2 doses prior to delivery. She was started on Pitocin for augmentation of labor with irregular contractions after rupture membranes. She was given an epidural for anesthesia. She progressed to complete and pushing. Stage II: On 10/04/2018 she had a normal vaginal delivery after section of a live female infant at 0459. Apgars of 8 & 9. Weight of 3240 g (7 lbs 2.3 oz). Length of 21 inches. There was no nuchal cord. was delivered in ABIMAEL position. The cord was doubly clamped and cut by father of the . was placed on mother's abdomen and then taken to warmer for further resuscitation. During pushing she had decelerations into the 80s to 90s and was given oxygen via simple mask. Stage III: She had a spontaneous delivery of an intact placenta in [place] presentation. Three vessel cord. She was given pitocin and fundal massage. She had a second-degree midline perineal laceration that was repaired with 3-0 Vicryl. Mom and baby were stable to recovery. EBL of 250 mL. Diagnosis: Stroke: No - Discharge Data Discharge Date: 10/05/18 Discharge Disposition: Home, Self-Care 01 Condition: Good - Discharge Diagnosis/Problem(s) (1) 38 weeks gestation of SNOMED Code(s): 60286891 ICD Code: Z3A.38 - 38 WEEKS GESTATION OF Status: Acute (2) History of section SNOMED Code(s): 919963681 ICD Code: Z98.891 - HISTORY OF UTERINE SCAR FROM PREVIOUS SURGERY Status: Acute (3) History of delivery, currently SNOMED Code(s): 146267620, 399555402 ICD Code: O34.219 - MATERNAL CARE FOR UNSP TYPE SCAR FROM PREVIOUS DEL Status: Acute (4) GBS (group B Streptococcus carrier), +RV culture, currently SNOMED Code(s): 0127076418664, 045890679, 9354557658031 ICD Code: O99.820 - STREPTOCOCCUS B CARRIER STATE COMPLICATING Status: Acute (5) Advanced maternal age in multigravida SNOMED Code(s): 488846564 ICD Code: O09.529 - SUPERVISION OF ELDERLY MULTIGRAVIDA, UNSPECIFIED TRIMESTER Status: Acute (6) ancestry requiring population-specific genetic screening SNOMED Code(s): 20199161, 771344647, 441367175 ICD Code: Z13.9 - ENCOUNTER FOR SCREENING, UNSPECIFIED Status: Acute (7) Vaginal delivery SNOMED Code(s): 643397894 ICD Code: O80 - ENCOUNTER FOR FULL-TERM UNCOMPLICATED DELIVERY Status: Acute (8) Vaginal delivery following previous section, delivered SNOMED Code(s): 564461037 ICD Code: O34.219 - MATERNAL CARE FOR UNSP TYPE SCAR FROM PREVIOUS DEL Status: Acute (9) Second degree perineal laceration during delivery SNOMED Code(s): 8823443 ICD Code: O70.1 - SECOND DEGREE PERINEAL LACERATION DURING DELIVERY Status : Acute - Patient Summary/Data Complications: None Consults: None Hospital Course: Guillermo Choe was admitted for spontaneous rupture membranes with clear fluid. On admission her cervix was dilated to 1 cm. She was GBS positive and was started on ampicillin and received a total of 2 doses prior to delivery. She was given pitocin for augmentation due to irregular contractions. She was given an epidural for anesthesia. She progressed to complete and began pushing. On 10/04/2018 she had a normal vaginal delivery after section of a live female infant at 0459. Apgars of 8 and 9. Weight of 3240 g (7 pounds 2.3 ounces). Her course was uneventful. Her pain was well controlled and she had minimal lochia. She was ambulating, tolerating a regular diet and voiding normally. She was breast-feeding with minimal difficulty. She was afebrile and her hematocrit was 37.7 on admission. She desired to be discharged home in the early afternoon of PPD #1. Her type is A+ . - Patient Instructions Diet: Regular Diet as Tolerated Activity: Apply Ice, As Tolerated Activity, Other: Nothing in the vagina for 6 weeks. Driving: May Drive Today Showering/Bathing: May Shower Notify Provider of: Fever, Increased Pain, Swelling and Redness, Drainage, Nausea and/or Vomiting Other/Special Instructions: Please contact your physician's office if you have heavy vaginal bleeding enough to soak a pad in less than an hour for several hours. Monitor for any signs of an infection in the breasts with severe pain or redness of the breast. - Discharge Plan *PRESCRIPTION DRUG MONITORING PROGRAM REVIEWED*: Not Applicable *COPY OF PRESCRIPTION DRUG MONITORING REPORT IN PATIENT DARLINE: Not Applicable Home Medications: Home Meds Acetaminophen [Tylenol] 650 mg PO Q6H PRN tablet 10/05/18 [Rx] Benzocaine/Menthol [Dermoplast Pain Relief [place]] 1 spray TOP ASDIRECTED PRN canister 10/05/18 [Rx] Docusate Sodium [Colace] 100 mg PO BID PRN cap 10/05/18 [Rx] Hydrocortisone Acetate [Anucort-HC] 25 mg RECTAL BID PRN supp 10/05/18 [Rx] Ibuprofen [Motrin] 600 mg PO Q6H PRN tablet 10/05/18 [Rx] Lanolin [Lansinoh HPA] 1 applic TOP ASDIRECTED PRN tube 10/05/18 [Rx] Vit with Ca/FA/Iron [ Plus Iron] 1 each PO DAILY tablet [Rx] Charlene Gannon [Tucks] 1 pad TOP ASDIRECTED PRN pad 10/05/18 [Rx] Patient Handouts: Home Care Instructions for Mom, Tips for a Good Latch, Care of a Perineal Tear Referrals: Ofelia Hannon MD [Primary Care Provider] - (Follow up in 3-6 weeks for routine visit or earlier as needed.) - Discharge Summary/Plan Comment DC Time >30 min.: No - Patient Data Vitals - Most Recent: Last Vital Signs Temp 36.3 C 10/05/18 07:58 Pulse 72 10/05/18 07:58 Resp 16 10/05/18 07:58 BP 116/75 10/05/18 07:58 Pulse Ox 99 10/05/18 07:58 Weight - Most Recent: 65.317 kg I&O - Last 24 hours: Intake & Output 10/05/18 10/05/18 10/05/18 06:59 14:59 22:59 Intake Total 480 Balance 480 Lab Results - Last 24 hrs: Laboratory Results - last 24 hr 10/03/18 Range/Units 17:30 RPR Non-reactive (NONREACTIVE) Med Orders - Current: Current Medications Discontinued Medications Acetaminophen (Tylenol) 650 mg PO Q6H PRN PRN Reason: Pain (Mild 1-3) and fever Acetaminophen (Tylenol) 650 mg PO Q6H PRN PRN Reason: mild pain or fever Last Admin: 10/05/18 00:35 Dose: 650 mg Benzocaine/Menthol (Dermoplast Pain Relief [place]) 0 gm TOP ASDIRECTED PRN PRN Reason: Perineal Comfort Measure Last Admin: 10/04/18 07:36 Dose: 1 canister Diphenhydramine HCl (Benadryl) 25 mg IVPUSH Q6H PRN PRN Reason: Pruritis Last Admin: 10/04/18 01:39 Dose: 25 mg Docusate Sodium (Colace) 100 mg PO BID PRN PRN Reason: Constipation Last Admin: 10/04/18 19:42 Dose: 100 mg Emollient Ointment (Lansinoh Hpa) 0 gm TOP ASDIRECTED PRN PRN Reason: Sore Nipples Ephedrine Sulfate (Ephedrine Sulfate) 5 mg IVPUSH ASDIRECTED PRN PRN Reason: Hypotension Fentanyl (Sublimaze) 100 mcg EPIDUR ONETIME PRN PRN Reason: Pain Last Admin: 10/04/18 00:27 Dose: 100 mcg Fentanyl/Bupivacaine HCl (Fentanyl/Bupivacaine/Ns 2 Mcg-0.125% 100 Ml) 100 ml EPIDUR ASDIRECTED KARLENE Fentanyl/Bupivacaine HCl (Wssxkrau-Khyqh-Ij 2 Mcg/Ml-0.125%) 100 ml EP ASDIRECTED KARLENE Last Admin: 10/04/18 00:27 Dose: 100 ml Hydrocortisone Acetate (Anucort-Hc) 25 mg RECTAL BID PRN PRN Reason: Hemorrhoid pain Ampicillin Sodium 2 gm/ Sodium (Chloride) 100 mls @ 200 mls/hr IV ONETIME ONE Stop: 10/03/18 17:47 Last Admin: 10/03/18 18:24 Dose: 200 mls/hr Ampicillin Sodium 1 gm/ Sodium (Chloride) 100 mls @ 200 mls/hr IV Q4H KARLENE Last Admin: 10/03/18 21:46 Dose: Not Given Lactated Ringer's (Ringers, Lactated) 1,000 mls @ 100 mls/hr IV ASDIRECTED [facility] Last Admin: 10/04/18 00:51 Dose: 100 mls/hr Oxytocin/Lactated Ringer's (Pitocin In Lr 10 Units/1,000 Ml) 10 unit in 1,000 mls @ 12 mls/hr IV TITRATE KARLENE; Protocol Last Titration: 10/04/18 05:00 Dose: 500 mls/hr Oxytocin/Lactated Ringer's (Pitocin In Lr 10 Units/1,000 Ml) 10 unit in 1,000 mls @ 100 mls/hr IV .CONTINUOUS KARLENE; Protocol Ampicillin Sodium 1 gm/ Sodium (Chloride) 100 mls @ 200 mls/hr IV Q4H [facility] Last Admin: 10/04/18 01:43 Dose: 200 mls/hr Oxytocin/Lactated Ringer's (Pitocin In Lr 10 Units/1,000 Ml) 10 unit in 1,000 mls @ 100 mls/hr IV TITRATE KARLENE; Protocol Ibuprofen (Motrin) 600 mg PO Q6H PRN PRN Reason: Mild pain or fever Last Admin: 10/05/18 12:28 Dose: 600 mg Nalbuphine HCl (Nubain) 10 mg IVPUSH Q2H PRN PRN Reason: pain Ondansetron HCl (Zofran) 4 mg IVPUSH ONETIME PRN PRN Reason: Nausea/Vomiting Prenat Multivit/[place]/Iron/Folic Ac ( Plus Iron) 1 each PO DAILY KARLENE Last Admin: 10/05/18 08:54 Dose: 1 each Sodium Chloride (Saline Flush) 10 ml FLUSH ASDIRECTED PRN PRN Reason: Keep Vein Open Charlene Gannon (Tucks) 1 pad TOP ASDIRECTED PRN PRN Reason: Perineal Comfort Measure Last Admin: 10/04/18 07:35 Dose: 1 canister
== END 2018-10-05 14:35 | disposition home or self-care (01) | DRG 807 ==
LOC: JD.OBCHECK 16:41 → JD.OB 16:51 → JD.OBCHECK 17:18 → JD.OB 17:19 → OBSVTOIN 10-04 04:59 → JD.OB 10-04 05:00
PROVIDERS: ADMIT Obstetrics & Gynecology; ATTEND Obstetrics & Gynecology
PROC: 10E0XZZ Delivery of Products of Conception, External Approach (ICD-10-PCS; principal; 2018-10-04)
PROC: 0KQM0ZZ Repair Perineum Muscle, Open Approach (ICD-10-PCS; principal; 2018-10-04)
PROC: 3E0R3BZ Introduction of Anesthetic Agent into Spinal Canal, Percutaneous Approach (ICD-10-PCS; 2018-10-04)
PROC: 00HU33Z Insertion of Infusion Device into Spinal Canal, Percutaneous Approach (ICD-10-PCS; 2018-10-04)
DX: O99.824 Streptococcus B carrier state complicating childbirth (principal); Z37.0 Single live birth; O76 Abnormality in fetal heart rate and rhythm complicating labor and delivery; O70.1 Second degree perineal laceration during delivery; O34.219 Maternal care for unspecified type scar from previous cesarean delivery; N85.8 Other specified noninflammatory disorders of uterus; Z3A.38 38 weeks gestation of pregnancy; Z91.030 Bee allergy status
CPT/HCPCS: 36415; 51701; 51702; 59025; 59409; 85025; 86592; 86850; 86900; 86901; A9270-GY; J0290; J1200; J2590; J3010; J3490; J7030; J7120